=== PATIENT | male | born 1970 | race Caucasian/White ===

== ENCOUNTER 2024-04-16 08:48 | Day surgery (SDC) | payer MEDICARE, OTHER ==
[2024-04-14 14:26] VITALS: BMI 32.5
[~2024-04-16 08:48] MED LIST: HYDROmorphone 0.5 MG/0.5 ML SYRINGE IVP PRN; LIDOCAINE 1% (10MG/ML) FOR IV START INTRADERMA PRN; MIDAZOLAM 2 MG/2 ML VIAL IV PRN; fentaNYL (PF) 50 MCG/ML 2 ML AMP IVP PRN
[2024-04-16] MEDS: IV FLUID CONTINUATION 1,000 ML IV ONE (09:28)
[2024-04-16] MEDS: LACTATED RINGERS 1,000 ML IV SCH (09:28)
[2024-04-16 09:39] LABS: Anisocytosis Slight; Basophils # (A) 0.1 k/uL (0-0.2); Basophils % (A) 1 %; Eosinophils # (A) 0.6 k/uL (0-0.7); Eosinophils % (A) 6 %; HCT 38.3 % (39.0-53.0); HGB 12.4 gm/dL (13.0-17.5); Lymphocytes # (A) 1.9 k/uL (1.0-4.8); Lymphocytes % (A) 19 %; MCH 28.3 pg (25.0-35.0); MCHC 32.5 g/dL (31.0-37.0); MCV 87.1 fL (80.0-100.0); Mean Platelet Volume 6.7; Monocytes # (A) 0.5 k/uL (0-1.0); Monocytes % (A) 5 %; Neutrophils % (A) 69 %; Platelet Count 279 k/uL (150-450); RDW 16.2 % (11.5-15.5); WBC 10.1 k/uL (3.8-10.6)
[2024-04-16 09:52] LABS: Glucose,Whole Blood 205 mg/dL (70-110)
[2024-04-16 09:55] LABS: ALT 13 U/L (4-49); AST 17 U/L (17-59); African American GFR (CKD) 11 (>60 ml/min/1.73 sqM); Alkaline Phosphatase 105 U/L (38-126); Anion Gap 11 mmol/L; Blood Urea Nitrogen 57 mg/dL (9-20); Carbon Dioxide 26 mmol/L (22-30); Chloride 100 mmol/L (98-107); Glucose 219 mg/dL (74-99); Non-African American GFR(CKD) 10 (>60 ml/min/1.73 sqM); Potassium 4.2 mmol/L (3.5-5.1); Sodium 137 mmol/L (137-145); Total Bilirubin 0.6 mg/dL (0.2-1.3); Total Protein 6.6 g/dL (6.3-8.2)
[2024-04-16] MEDS: ONDANSETRON 4 MG/2 ML VIAL IVP ONE (09:56)
[2024-04-16] MEDS: DEXAMETHASONE SOD PHOSPHATE 4 MG/ML 1 ML VIAL IV ONE (09:56)
[2024-04-16] MEDS ORDERED: SUGAMMADEX SODIUM 200 MG/2 ML SDV IV ONE (10:53)
[2024-04-16] MEDS ORDERED: LIDOCAINE 1% INJ 10MG/ML (20 ML MDV) ONE (10:53)
[2024-04-16] MEDS ORDERED: fentaNYL (PF) 50 MCG/ML 2 ML AMP ONE (10:53)
[2024-04-16] MEDS ORDERED: MIDAZOLAM 2 MG/2 ML VIAL ONE (10:53)
[2024-04-16] MEDS ORDERED: SUCCINYLCHOLINE CHLORIDE 200 MG/10 ML VIAL IV ONE (10:53)
[2024-04-16] MEDS ORDERED: PROPOFOL 10 MG/ML 20 ML VIAL IV ONE (10:53)
[2024-04-16] MEDS ORDERED: ROCURONIUM 10 MG/ML (5 ML VIAL) IV ONE (10:53)
[2024-04-16] MEDS: SODIUM CHLORIDE 0.9% 1,000 ML IV ONE (10:58)
[2024-04-16] MEDS: LIDOCAINE 1%-EPI 1:100,000 20 ML VIAL SQ ONE (11:15)
[2024-04-16] MEDS: MINERAL OIL 1 APPLIC/ML OIL MISCELLANE ONE (11:15)
[2024-04-16 11:55] VITALS: TEMP 97.6
[2024-04-16 11:58] LABS: Glucose,Whole Blood 284 mg/dL (70-110)
--- NOTE | 2024-04-16 12:03 | P.OP ---
Date of Procedure: 04/16/24 Preoperative Diagnosis: Chronic kidney disease Postoperative Diagnosis: Chronic kidney disease Procedure(s) Performed: Peritoneal dialysis catheter placement Omentopexy Implants: Covidien double cuffed peritoneal dialysis catheter Anesthesia: PATIENCE Surgeon: Arnaldo Fagan Pathology: none sent Condition: stable Disposition: same day Indications for Procedure: 54-year-old male followed by nephrology with chronic kidney disease with recommendation to begin dialysis. Plan is for peritoneal dialysis catheter placement for dialysis. Risks, benefits and alternatives were presented to the patient. All questions answered. Operative Findings: Appropriate flush through catheter Description of Procedure: Patient was brought to the operating suite and placed in supine position on the operating table. Sedation was provided by anesthesia and the patient underwent endotracheal intubation. The patient was prepped and draped in regular sterile fashion. Incision was made at Johnson's point and the abdomen was entered under direct visualization using a 5 mm Visiport. Pneumoperitoneum was achieved. Additional 5 mm port was placed in the right upper quadrant. Omentum was grasped and elevated towards the falciform ligament. A Lee Alfaro device was used in the subxiphoid region and with a 2-0 Vicryl, the omentum was secured to the abdominal wall. Omentopexy was completed at this point. An additional 5 mm incision was made approximately 3 cm medial and inferior to the initial Johnson's point incision site. A long 5 mm trocar was then placed through this incision site and it was run along the peritoneum with exit in the infraumbilical region. Through the port, peritoneal dialysis catheter was inserted after mineral oil was applied. The port was then removed and the cuff was noted to sit in the preperitoneal space. Appropriate flush was noted with saline. At this point, the initial 5 mm trocar site was removed and a hemostat was placed through the subcutaneous tissue to the insertion site of the catheter and the catheter was grasped and pulled through the subcutaneous tract towards the initial incision site. At this point pneumoperitoneum was released and all ports removed from the abdomen. All skin incisions were closed with 4-0 Vicryl subcuticular suture with 2-0 nylon suture placed just lateral to the dialysis catheter site. No evidence of kinking noted. Sterile dressing was applied. The patient was awakened in the operating suite and taken to postanesthesia care unit in stable condition.
[2024-04-16 13:14] LABS: Glucose,Whole Blood 290 mg/dL (70-110)
[2024-04-16] MEDS: INSULIN ASPART (NovoLOG) 100 UNIT/ML VIAL SQ SCH (13:28)
[2024-04-16 13:46] VITALS: RESP 20
[2024-04-16 14:04] VITALS: BP 172/72; PULSE 78
[2024-04-16 14:19] LABS: Glucose,Whole Blood 272 mg/dL (70-110)
== END 2024-04-16 14:47 | disposition home or self-care (01) ==
LOC: OR 08:48
PROVIDERS: ATTEND Surgery
DX: E11.22 Type 2 diabetes mellitus with diabetic chronic kidney disease (principal); I12.9 Hypertensive chronic kidney disease with stage 1 through stage 4 chronic kidney disease, or unspecified chronic kidney disease; N18.9 Chronic kidney disease, unspecified; Z99.2 Dependence on renal dialysis; E78.5 Hyperlipidemia, unspecified; J45.909 Unspecified asthma, uncomplicated; F41.9 Anxiety disorder, unspecified; Z79.4 Long term (current) use of insulin; Z79.85 Long-term (current) use of injectable non-insulin antidiabetic drugs; Z79.899 Other long term (current) drug therapy; Z87.891 Personal history of nicotine dependence
CPT/HCPCS: 49324; 49326; 80053; 85025; J1100; J0690; J2405